=== PATIENT | male | born 1955 | race Caucasian/White ===

== ENCOUNTER → 2016-10-28 | Outpatient (CLI) | payer MEDICARE, OTHER ==
[~2016-10-28] MED LIST: ALPR0.5T6 PO; AMIT10TA PO; AMLO10TA2 PO; ASCO500T12 PO; ASPI-621 PO; ATOR80TA75 PO; CARI350T14 PO; CARV6.2512 PO; CHOL100011 PO; CHOL20002 PO; CLON0.1T PO; DOCU-30 PO; DOCU100C8 PO; FOLI0.8T7 PO; HYDR-3240 PO; LOSA100T6 PO; LOSA25TA5 PO; METO200T2 PO; MINO2.5T PO; OMEP-110 PO; POLY17PO5 PO; SEVE800T8 PO; TICA90TA PO; WHEA1POW5 PO; ZOLP10TA5 PO; [UNRECOGNIZED DRUG - OTHER]
== END | disposition home or self-care (01) ==
LOC: RAD 10:50
PROVIDERS: ATTEND Internal Medicine Critical Care Medicine
DX: Z11.1 Encounter for screening for respiratory tuberculosis (principal); R76.11 Nonspecific reaction to tuberculin skin test without active tuberculosis
CPT/HCPCS: 71020

== ENCOUNTER 2016-12-01 08:23 | Inpatient (IN) | payer OTHER, MEDICARE ==
[~2016-12-01] VITALS: Ht 167.6 cm; Wt 56.8 kg
[2016-12-01] MEDS ORDERED: SODIUM CHLORIDE 0.9% 1,000 ML IV ONE (08:46)
[2016-12-01 09:29] LABS: ASPARTATE AMINO TRANSFERASE 33 U/L (15-37); BLOOD UREA NITROGEN 57 mg/dL (7-18)
[2016-12-01] MEDS ORDERED: SODIUM CHLORIDE FLUSH 10ML SYR IVF ONE (09:30)
[2016-12-01 09:35] LABS: IS PT STATUS REG ER OR PRE ER? YES
[2016-12-01] MEDS ORDERED: OXYC1TAB7 PO (09:36)
[2016-12-01] MEDS ORDERED: CLON0.2T PO (09:36)
[2016-12-01] MEDS ORDERED: HYDR200T PO (09:36)
[2016-12-01] MEDS ORDERED: AMLO10TA2 PO (09:36)
[2016-12-01] MEDS ORDERED: OMEP-110 PO (09:36)
[2016-12-01] MEDS ORDERED: HYDR25TA11 PO (09:36)
[2016-12-01] MEDS ORDERED: METO200T2 PO (09:36)
[2016-12-01] MEDS ORDERED: OMNIPAQUE 350 MG/ML, 100ML BOTTLE ONE (10:51)
[2016-12-01] MEDS ORDERED: FUROSEMIDE 40 MG/4 ML ONE (11:40)
[2016-12-01] MEDS ORDERED: NITROGLYCERIN OINT 2%, 1GM TP ONE ×2 (11:43→12:00)
[2016-12-01] MEDS ORDERED: FUROSEMIDE 40 MG/4 ML IVPush ONE (12:00)
[2016-12-01] MEDS ORDERED: ACETAMINOPHEN 325 MG TABLET PO PRN (14:00)
[2016-12-01] MEDS ORDERED: TEMAZEPAM 15 MG CAPSULE PO PRN (14:00)
[2016-12-01] MEDS ORDERED: HYDROcodone/APAP 5/325 TABLET PO PRN (14:00)
[2016-12-01] MEDS ORDERED: HYDROmorphone 2 MG/ML, 1ML IVPush PRN (14:00)
[2016-12-01] MEDS ORDERED: OXYcodone/APAP 5/325MG TABLET PO PRN (14:00)
[2016-12-01] MEDS ORDERED: ONDANSETRON 2MG/ML, 2ML IVPush PRN (14:00)
[2016-12-01] MEDS ORDERED: ENALAPRILAT 1.25 MG/ML, 2ML IVPush PRN (14:00)
[2016-12-01] MEDS: SEVELAMER 800MG TABLET PO SCH (18:00)
[2016-12-01] MEDS ORDERED: TICA90TA PO (19:14)
[2016-12-01 20:19] LABS: IS PT STATUS REG ER OR PRE ER? NO
[2016-12-01 20:23] VITALS: BP 135/81
[2016-12-01] MEDS: CARISOPRODOL 350 MG TABLET PO SCH (20:40)
[2016-12-01] MEDS: DOCUSATE 100 MG CAPSULE PO SCH (20:40)
[2016-12-01] MEDS: OMEPRAZOLE 20 MG CAPSULE.DR PO SCH (20:40)
[2016-12-01] MEDS: ATORVASTATIN 80 MG TABLET PO SCH (20:40)
[2016-12-01] MEDS: TICAGRELOR 90 MG TABLET PO SCH (20:40)
[2016-12-01] MEDS: ZOLPIDEM 10MG TABLET PO SCH (20:47)
[2016-12-01] MEDS ORDERED: HEPARIN 5,000 UNITS/ML, 1ML SQ SCH (22:00)
[2016-12-01] MEDS: HEPARIN 5,000 UNITS/ML, 1ML SQ SCH (22:18)
[2016-12-02 01:31] VITALS: BP 145/97
[2016-12-02 06:19] LABS: ASPARTATE AMINO TRANSFERASE 25 U/L (15-37); BLOOD UREA NITROGEN 24 mg/dL (7-18)
[2016-12-02 06:25] LABS: TOTAL IRON BINDING CAPACITY 220 mcg/dL (250-450)
[2016-12-02 06:34] LABS: IS PT STATUS REG ER OR PRE ER? NO
[2016-12-02 07:50] VITALS: BP 159/94
[2016-12-02] MEDS: SEVELAMER 800MG TABLET PO SCH ×3 (08:00→16:48)
[2016-12-02] MEDS ORDERED: FUROSEMIDE 40 MG/4 ML IV SCH (09:00)
[2016-12-02] MEDS ORDERED: ISOSORBIDE MONONITRATE ER 30 MG TABLET PO SCH (09:00)
[2016-12-02] MEDS: POLYETHYLENE GLYCOL 17 GM PACKET PO SCH (09:47)
[2016-12-02] MEDS: METOPROLOL SUCCINATE 100 MG TAB.ER.24H PO SCH (09:47)
[2016-12-02] MEDS: DOCUSATE 100 MG CAPSULE PO SCH ×2 (09:47→21:59)
[2016-12-02] MEDS: PSYLLIUM PACKET PO SCH (09:47)
[2016-12-02] MEDS: HYDROXYCHLOROQUINE 200 MG TABLET PO SCH (09:47)
[2016-12-02] MEDS: TICAGRELOR 90 MG TABLET PO SCH ×2 (09:47→22:00)
[2016-12-02] MEDS: OMEPRAZOLE 20 MG CAPSULE.DR PO SCH ×2 (09:48→22:00)
[2016-12-02] MEDS: AMLODIPINE 5 MG TABLET PO SCH ×2 (09:48→22:00)
[2016-12-02] MEDS: ISOSORBIDE MONONITRATE ER 30 MG TABLET PO SCH (09:49)
[2016-12-02] MEDS: LOSARTAN 25MG TABLET PO SCH (09:49)
[2016-12-02] MEDS: ASPIRIN 81 MG TABLET EC PO SCH (09:49)
[2016-12-02] MEDS: HEPARIN 5,000 UNITS/ML, 1ML SQ SCH ×2 (09:49→21:55)
[2016-12-02] MEDS: MULTIVITS,STRESS FORMULA 1 TABLET PO SCH (09:49)
[2016-12-02 12:54] VITALS: BP 130/85
[2016-12-02 13:32] LABS: HEP B SURF. AB 35.9 mIU/mL (0.0-10.0)
[2016-12-02 19:28] VITALS: BP 127/75
[2016-12-02 21:57] VITALS: BP 139/84
[2016-12-02] MEDS: CARISOPRODOL 350 MG TABLET PO SCH (21:59)
[2016-12-02] MEDS: ATORVASTATIN 80 MG TABLET PO SCH (22:00)
[2016-12-02] MEDS: ZOLPIDEM 10MG TABLET PO SCH (22:00)
[2016-12-02] MEDS ORDERED: NITROGLYCERIN 0.4 MG BOTTLE (25 TABS) SL ONE (22:38)
[2016-12-03 01:03] VITALS: BP 149/83
[2016-12-03 05:52] LABS: BLOOD UREA NITROGEN 54 mg/dL (7-18)
[2016-12-03 07:27] VITALS: BP 154/91
[2016-12-03] MEDS: SEVELAMER 800MG TABLET PO SCH ×3 (08:00→17:25)
[2016-12-03] MEDS: DOCUSATE 100 MG CAPSULE PO SCH ×2 (09:00→21:00)
[2016-12-03] MEDS: PSYLLIUM PACKET PO SCH (09:00)
[2016-12-03] MEDS: POLYETHYLENE GLYCOL 17 GM PACKET PO SCH (09:00)
[2016-12-03] MEDS: HEPARIN 5,000 UNITS/ML, 1ML SQ SCH ×2 (10:00→22:00)
[2016-12-03 12:50] VITALS: BP 159/92
[2016-12-03] MEDS: LOSARTAN 25MG TABLET PO SCH (13:11)
[2016-12-03] MEDS: TICAGRELOR 90 MG TABLET PO SCH ×2 (13:11→21:59)
[2016-12-03] MEDS: ISOSORBIDE MONONITRATE ER 30 MG TABLET PO SCH (13:12)
[2016-12-03] MEDS: ASPIRIN 81 MG TABLET EC PO SCH (13:12)
[2016-12-03] MEDS: HYDROXYCHLOROQUINE 200 MG TABLET PO SCH (13:13)
[2016-12-03] MEDS: OMEPRAZOLE 20 MG CAPSULE.DR PO SCH ×2 (13:13→21:59)
[2016-12-03] MEDS: AMLODIPINE 5 MG TABLET PO SCH (13:13)
[2016-12-03] MEDS: MULTIVITS,STRESS FORMULA 1 TABLET PO SCH (13:14)
[2016-12-03] MEDS: METOPROLOL SUCCINATE 100 MG TAB.ER.24H PO SCH (13:14)
[2016-12-03] MEDS: FUROSEMIDE 40 MG TABLET PO SCH (17:25)
[2016-12-03 19:07] VITALS: BP 107/63
[2016-12-03 21:58] VITALS: BP 124/79
[2016-12-03] MEDS: ATORVASTATIN 80 MG TABLET PO SCH (21:59)
[2016-12-03] MEDS: ZOLPIDEM 10MG TABLET PO SCH (21:59)
[2016-12-03] MEDS: CARISOPRODOL 350 MG TABLET PO SCH (22:24)
[2016-12-04 01:12] VITALS: BP 130/85
[2016-12-04 05:50] LABS: BLOOD UREA NITROGEN 50 mg/dL (7-18)
[2016-12-04 07:15] VITALS: BP 124/79
[2016-12-04] MEDS: SEVELAMER 800MG TABLET PO SCH ×2 (08:00→08:53)
[2016-12-04] MEDS: HEPARIN 5,000 UNITS/ML, 1ML SQ SCH (08:47)
[2016-12-04] MEDS: POLYETHYLENE GLYCOL 17 GM PACKET PO SCH (08:47)
[2016-12-04] MEDS: PSYLLIUM PACKET PO SCH (08:47)
[2016-12-04] MEDS: TICAGRELOR 90 MG TABLET PO SCH (08:53)
[2016-12-04] MEDS: ISOSORBIDE MONONITRATE ER 30 MG TABLET PO SCH (08:54)
[2016-12-04] MEDS: AMLODIPINE 5 MG TABLET PO SCH (08:54)
[2016-12-04] MEDS: ASPIRIN 81 MG TABLET EC PO SCH (08:54)
[2016-12-04] MEDS: LOSARTAN 25MG TABLET PO SCH (08:54)
[2016-12-04] MEDS: HYDROXYCHLOROQUINE 200 MG TABLET PO SCH (08:55)
[2016-12-04] MEDS: METOPROLOL SUCCINATE 100 MG TAB.ER.24H PO SCH (08:55)
[2016-12-04] MEDS: OMEPRAZOLE 20 MG CAPSULE.DR PO SCH (08:55)
[2016-12-04] MEDS: MULTIVITS,STRESS FORMULA 1 TABLET PO SCH (08:55)
[2016-12-04] MEDS: FUROSEMIDE 40 MG TABLET PO SCH (08:55)
[2016-12-04] MEDS: DOCUSATE 100 MG CAPSULE PO SCH (08:57)
[2016-12-04] MEDS ORDERED: ISOS30TA8 PO (09:12)
== END 2016-12-04 13:02 | disposition home or self-care (01) | DRG 291 ==
LOC: ED 09:38 → EDIP 11:31 → 5SO 12:42
PROVIDERS: ADMIT Internal Medicine; ATTEND Internal Medicine
PROC: 5A1D60Z (ICD-10-PCS; principal; 2016-12-01)
DX: I13.2 Hypertensive heart and chronic kidney disease with heart failure and with stage 5 chronic kidney disease, or end stage renal disease (principal); I50.21 Acute systolic (congestive) heart failure; N18.6 End stage renal disease; J96.01 Acute respiratory failure with hypoxia; Q61.3 Polycystic kidney, unspecified; D63.1 Anemia in chronic kidney disease; E78.5 Hyperlipidemia, unspecified; G47.33 Obstructive sleep apnea (adult) (pediatric); I25.10 Atherosclerotic heart disease of native coronary artery without angina pectoris; I25.5 Ischemic cardiomyopathy; K21.9 Gastro-esophageal reflux disease without esophagitis; M06.9 Rheumatoid arthritis, unspecified; Z99.2 Dependence on renal dialysis; Z90.5 Acquired absence of kidney; Z95.5 Presence of coronary angioplasty implant and graft; I25.2 Old myocardial infarction; Z87.891 Personal history of nicotine dependence; Z90.49 Acquired absence of other specified parts of digestive tract; Z99.81 Dependence on supplemental oxygen; Z88.1 Allergy status to other antibiotic agents; Z88.5 Allergy status to narcotic agent; Z88.0 Allergy status to penicillin
CPT/HCPCS: 36415; 71010; 71275; 80048; 80053; 82306; 82728; 83540; 83550; 83735; 83880; 83970; 84100; 84443; 84484; 85025; 85379; 85610; 85730; 86705; 86706; 87070; 87205; 87340; 93005; 93308; 96374; J1644; J1940; Q9967

== ENCOUNTER 2017-05-02 06:44 | Day surgery (SDC) | payer MEDICARE, OTHER ==
[~2017-05-02] VITALS: Ht 167.6 cm; Wt 60.7 kg
[~2017-05-02 06:44] MED LIST changes: +ATOR-2 PO; -ATOR80TA75 PO; +CLON0.2T PO; +DOCU-131 PO; -DOCU-30 PO; +DOCU100C33 PO; -DOCU100C8 PO; +HYDR200T PO; +HYDR25TA11 PO; +ISOS30TA8 PO; +OXYC1TAB7 PO
[2017-05-02] MEDS ORDERED: BUPIVACAINE/PF 0.5% ONE (06:55)
[2017-05-02] MEDS ORDERED: PROTAMINE SULFATE 10 MG/ML, 5ML ONE (06:55)
[2017-05-02] MEDS ORDERED: THROMBIN 5,000 UNIT VIAL TP ONE (06:55)
[2017-05-02] MEDS ORDERED: HEPARIN 1,000 UNITS/ML, 10ML ONE (06:56)
[2017-05-02] MEDS ORDERED: ISOS30TA21 PO (07:26)
[2017-05-02] MEDS ORDERED: MINO2.5T PO (07:26)
[2017-05-02] MEDS ORDERED: LOSA25TA5 PO (07:26)
[2017-05-02] MEDS ORDERED: CLIN150C14 PO (07:26)
[2017-05-02] MEDS ORDERED: ASPI-496 PO (07:26)
[2017-05-02] MEDS ORDERED: SODIUM CHLORIDE 0.9% 1,000 ML IV SCH (07:27)
[2017-05-02 07:41] VITALS: BP 126/84
[2017-05-02] MEDS ORDERED: MIDAZOLAM 1 MG/ML, 2ML ONE (08:23)
[2017-05-02] MEDS ORDERED: FENTANYL PF 100 MCG/2ML ONE (08:23)
[2017-05-02] MEDS ORDERED: CEFAZOLIN 1,000 MG ONE ×2 (08:24)
[2017-05-02] MEDS ORDERED: PROPOFOL 10 MG/ML, 20ML ONE (08:24)
[2017-05-02] MEDS ORDERED: LABETALOL 5MG/ML, 20ML IV PRN (09:00)
[2017-05-02] MEDS ORDERED: ONDANSETRON 2MG/ML, 2ML IVPush PRN (09:00)
[2017-05-02] MEDS ORDERED: PROMETHAZINE 25 MG/ML, 1ML IV PRN (09:00)
[2017-05-02] MEDS ORDERED: HYDROmorphone 1 MG/ML, 1ML IV PRN (09:00)
[2017-05-02] MEDS ORDERED: FENTANYL PF 100 MCG/2ML IV PRN (09:00)
[2017-05-02] MEDS ORDERED: ACETAMINOPHEN 325 MG TABLET PO PRN (09:00)
[2017-05-02] MEDS ORDERED: hydrALAzine 20 MG/ML, 1ML IV PRN (09:00)
[2017-05-02] MEDS ORDERED: OXYcodone 5 MG/5 ML ORAL.SOL UDC PO PRN (09:00)
[2017-05-02] MEDS ORDERED: PHENYLEPHRINE 10 MG/ML ONE (09:12)
[2017-05-02] MEDS ORDERED: ACETAMINOPHEN 325 MG TABLET ONE (09:51)
[2017-05-02] MEDS ORDERED: OXYcodone 5 MG/5 ML ORAL.SOL UDC ONE (09:51)
== END 2017-05-02 11:40 | disposition home or self-care (01) ==
LOC: OUT 06:44
PROVIDERS: ATTEND Surgery Vascular Surgery
DX: N19 Unspecified kidney failure (principal); I12.0 Hypertensive chronic kidney disease with stage 5 chronic kidney disease or end stage renal disease; N18.6 End stage renal disease; J44.9 Chronic obstructive pulmonary disease, unspecified; I25.10 Atherosclerotic heart disease of native coronary artery without angina pectoris; Z88.6 Allergy status to analgesic agent; Z88.1 Allergy status to other antibiotic agents; Z88.5 Allergy status to narcotic agent; Z88.8 Allergy status to other drugs, medicaments and biological substances
CPT/HCPCS: 36415; 36821; 80047; J0690; J1644; J2250; J2370; J2704; J3010; J3490; J7030; J2720

== ENCOUNTER 2017-09-05 07:58 | Day surgery (SDC) | payer OTHER ==
[~2017-09-05] VITALS: Ht 167.6 cm; Wt 60.0 kg
[~2017-09-05 07:58] MED LIST changes: +ASPI-496 PO; +BUPIVACAINE/PF 0.5% ONE; +CLIN150C14 PO; +HEPARIN 1,000 UNITS/ML, 10ML ONE; +ISOS30TA21 PO; +PROTAMINE SULFATE 10 MG/ML, 5ML ONE; +THROMBIN 5,000 UNIT VIAL TP ONE
[2017-09-05] MEDS ORDERED: SODIUM CHLORIDE 0.9% 1,000 ML IV SCH (08:21)
[2017-09-05 08:22] VITALS: BP 136/87
[2017-09-05] MEDS ORDERED: PLEASE ENTER HEIGHT AND WEIGHT MC SCH (08:30)
[2017-09-05] MEDS ORDERED: LIDOCAINE 1%, 2ML SQ PRN (08:30)
[2017-09-05] MEDS ORDERED: MIDAZOLAM 1 MG/ML, 2ML ONE (09:00)
[2017-09-05] MEDS ORDERED: FENTANYL PF 100 MCG/2ML ONE ×2 (09:00→10:56)
[2017-09-05] MEDS ORDERED: PHENYLEPHRINE 10 MG/ML ONE (09:28)
[2017-09-05] MEDS ORDERED: LABETALOL 5MG/ML, 20ML IV PRN (09:30)
[2017-09-05] MEDS ORDERED: ACETAMINOPHEN 325 MG TABLET PO PRN (09:30)
[2017-09-05] MEDS ORDERED: MIDAZOLAM 1 MG/ML, 2ML IV PRN (09:30)
[2017-09-05] MEDS ORDERED: ALBUTEROL/IPRATROPIUM 2.5MG/0.5MG, 3 ML NPPB PRN (09:30)
[2017-09-05] MEDS ORDERED: ONDANSETRON 2MG/ML, 2ML IVPush PRN (09:30)
[2017-09-05] MEDS ORDERED: PROMETHAZINE 25 MG/ML, 1ML IV PRN (09:30)
[2017-09-05] MEDS ORDERED: MEPERIDINE/PF 25MG/0.5ML IVPush PRN (09:30)
[2017-09-05] MEDS ORDERED: HYDROmorphone 1 MG/ML, 1ML IV PRN (09:30)
[2017-09-05] MEDS ORDERED: DIAZEPAM 5 MG/ML, 2ML IVPush PRN (09:30)
[2017-09-05] MEDS ORDERED: PROMETHAZINE 12.5 MG SUPP PR PRN (09:30)
[2017-09-05] MEDS ORDERED: OXYcodone 5 MG/5 ML ORAL.SOL UDC PO PRN (09:30)
[2017-09-05] MEDS ORDERED: hydrALAzine 20 MG/ML, 1ML IV PRN (09:30)
[2017-09-05] MEDS ORDERED: LIDOCAINE-MPF 2% ,5ML ONE (09:53)
[2017-09-05] MEDS ORDERED: PROPOFOL 10 MG/ML, 20ML ONE (09:53)
[2017-09-05] MEDS ORDERED: VISIPAQUE 270 MG/ML, 150ML BOTTLE IV ONE (09:53)
[2017-09-05] MEDS ORDERED: CEFAZOLIN 1,000 MG ONE (09:53)
[2017-09-05] MEDS ORDERED: DEXAMETHASONE 4 MG/ML, 1ML ONE (09:53)
[2017-09-05] MEDS ORDERED: ONDANSETRON 2MG/ML, 2ML ONE (09:53)
[2017-09-05] MEDS ORDERED: EPHEDRINE 50 MG/ML, 1ML ONE (09:55)
[2017-09-05] MEDS: FENTANYL PF 100 MCG/2ML IV PRN ×3 (10:58→11:27)
[2017-09-05] MEDS ORDERED: OXYcodone 5 MG/5 ML ORAL.SOL UDC ONE (11:04)
[2017-09-05] MEDS ORDERED: ACETAMINOPHEN 650 MG/20.3 ML UDC ONE (11:04)
== END 2017-09-05 12:35 ==
LOC: OUT 07:58
PROVIDERS: ATTEND Surgery Vascular Surgery
DX: I13.11 Hypertensive heart and chronic kidney disease without heart failure, with stage 5 chronic kidney disease, or end stage renal disease (principal); N18.6 End stage renal disease; I25.10 Atherosclerotic heart disease of native coronary artery without angina pectoris; M19.90 Unspecified osteoarthritis, unspecified site; E78.5 Hyperlipidemia, unspecified; G47.00 Insomnia, unspecified; K21.9 Gastro-esophageal reflux disease without esophagitis; Z88.1 Allergy status to other antibiotic agents; Z88.8 Allergy status to other drugs, medicaments and biological substances; Z79.899 Other long term (current) drug therapy; Z79.82 Long term (current) use of aspirin; Z72.89 Other problems related to lifestyle; Z90.49 Acquired absence of other specified parts of digestive tract; Z90.5 Acquired absence of kidney; Z98.890 Other specified postprocedural states
CPT/HCPCS: 36415; 36830; 73060; 76000; 80047; 93005; C1768; C1894; J0690; J1100; J1644; J2250; J2370; J2405; J2704; J2720; J3010; J3490; J7030; Q9966

== ENCOUNTER 2018-08-14 10:09 | Day surgery (SDC) | payer MEDICARE, OTHER ==
[~2018-08-14] VITALS: Ht 167.6 cm; Wt 59.7 kg
[~2018-08-14 10:09] MED LIST changes: -AMLO10TA2 PO; +AMLO10TA8 PO; -ASPI-621 PO; +ASPI81TA45 PO; +ATOR80TA PO; -BUPIVACAINE/PF 0.5% ONE; +CALC500T PO; -CHOL20002 PO; +CHOL200052 PO; -CLON0.1T PO; +CLON0.1T22 PO; -HEPARIN 1,000 UNITS/ML, 10ML ONE; -HYDR200T PO; +HYDR200T72 PO; +LOSA100T14 PO; -LOSA100T6 PO; +LOSA25TA25 PO; -LOSA25TA5 PO; -PROTAMINE SULFATE 10 MG/ML, 5ML ONE; -THROMBIN 5,000 UNIT VIAL TP ONE
[2018-08-14] MEDS ORDERED: SODIUM CHLORIDE 0.9% 1,000 ML IV SCH (11:15)
[2018-08-14 11:25] VITALS: BP 166/86
[2018-08-14 11:59] LABS: ALANINE AMINOTRANSFERASE 34 U/L (12-78); ALBUMIN 3.6 g/dL (3.4-5.0); ANION GAP 14 mmol/L (5-15); CALCIUM 8.9 mg/dL (8.5-10.1); CHLORIDE 99 mmol/L (98-107)
[2018-08-14 12:01] LABS: ALKALINE PHOSPHATASE 84 U/L (45-117); BILIRUBIN,TOTAL 0.6 mg/dL (0.2-1.0); TOTAL PROTEIN 6.5 g/dL (6.4-8.2)
[2018-08-14] MEDS ORDERED: PROPOFOL 10 MG/ML, 20ML ONE (12:36)
[2018-08-14] MEDS ORDERED: PHENYLEPHRINE 10 MG/ML ONE (12:36)
[2018-08-14] MEDS ORDERED: PROPOFOL 50 ML ONE (12:43)
[2018-08-14] MEDS ORDERED: FENTANYL PF 100 MCG/2ML IV PRN (13:30)
== END 2018-08-14 14:45 | disposition home or self-care (01) ==
LOC: OUT 10:09
PROVIDERS: ATTEND Internal Medicine
DX: K92.2 Gastrointestinal hemorrhage, unspecified (principal); K64.8 Other hemorrhoids; I25.2 Old myocardial infarction; Z88.6 Allergy status to analgesic agent; Z88.1 Allergy status to other antibiotic agents; Z88.5 Allergy status to narcotic agent; Z88.8 Allergy status to other drugs, medicaments and biological substances
CPT/HCPCS: 36415; 45378; 80053; J2370; J2704; J7030

== ENCOUNTER → 2021-01-22 | Outpatient (CLI) | payer MEDICARE ==
[~2021-01-22] MED LIST changes: -ALPR0.5T6 PO; +ALPR0.5T93 PO; +AMLO-211 PO; -AMLO10TA8 PO; -ASCO500T12 PO; +ASCO500T93 PO; -CALC500T PO; +CALC500T29 PO; +CARI-389 PO; -CARI350T14 PO; -CLIN150C14 PO; +CLIN150C15 PO; +HYDR-2214 PO; -HYDR-3240 PO; +HYDR-826 PO; -HYDR25TA11 PO
== END | disposition home or self-care (01) ==
LOC: RAD 12:10
PROVIDERS: ATTEND Family Medicine
DX: S13.130A Subluxation of C2/C3 cervical vertebrae, initial encounter (principal); M47.22 Other spondylosis with radiculopathy, cervical region; M43.22 Fusion of spine, cervical region; X58.XXXA Exposure to other specified factors, initial encounter; Y93.89 Activity, other specified; Y92.89 Other specified places as the place of occurrence of the external cause; Y99.8 Other external cause status
CPT/HCPCS: 72040